=== PATIENT | female | born 1990 | race Caucasian/White ===

== ENCOUNTER → 2016-08-31 | Outpatient (CLI) | payer OTHER ==
--- NOTE | 2016-08-31 13:04 | REP ---
Clinical: Anatomical evaluation. Comparison: None . Findings: Examination demonstrates a single live intrauterine in breech presentation. motion is identified by technologist. Placenta is noted posterior fundally and grade zero without evidence for placenta previa or abruption. Amniotic fluid volume is normal. Cervix measures 3.3 cm in length and appears closed. Nuchal cord cannot be excluded. Gestational age by LMP 20 weeks 0 days with REGINALD 01/18/2017 . Gestational age by current measurements 19 weeks 5 days with REGINALD 01/20/2017 . FHR equals 141 beats per minute. BPD 4.4 cm 19 weeks 2 days HC 16.8 cm 19 weeks 3 days AC 15.5 cm 20 weeks 5 days FL 3.3 cm 20 weeks 3 days HL 3.1 cm 20 weeks 3 days HC/AC ratio 1.08 Estimated weight 352 grams ( 62nd percentile). Anatomical assessment demonstrates normal structures including cranium, choroid plexus, cavum, cerebellum/posterior fossa, facial features, lungs, four-chamber heart/ventricular outflow tracts, diaphragm, stomach, cord insertion/three-vessel cord, kidneys/bladder, spine, and extremities. Impression: Single live intrauterine in breech presentation demonstrating appropriate interval growth. Anatomical assessment is complete and normal. Nuchal cord cannot be excluded. Signed by Zelalem Jaimes MD 08/31/2016 12:56 P
== END ==
LOC: M LRY 08:53
PROVIDERS: ATTEND Advanced Practice Midwife
DX: Z36 Encounter for antenatal screening of mother (principal); Z3A.19 19 weeks gestation of pregnancy